=== PATIENT | male | born 1985 | race Caucasian/White ===

== ENCOUNTER 2017-03-13 19:41 | Emergency (ER) | payer BC, OTHER ==
[~2017-03-13] VITALS: Ht 177.8 cm; Wt 82.1 kg
[~2017-03-13 19:41] MED LIST: CIPRO500 MG PO; FLAGYL500 MG PO; HYOSCYAMINE0.125 M2 PO; NORCO 5-325 TA1 EACH PO; PAIN RELIEF325 MG PO
--- OUTSIDE RECORDS SUMMARY | 2017-03-13 20:49 | XMS ---
Demographics + + + | Address | [address] [place] [address] | | | [place] [address] | + + + | Preferred Language | Unknown | + + + | Marital Status | Unknown | + + + | Nondenominational Affiliation | Unknown | + + + | Race | Unknown | + + + | Ethnic Group | Unknown | + + + Author + + + | Author | [facility] | + + + | Organization | [facility] | + + + | Address | [address] | | | [place] [address] | + + + | Phone | | + + + Care Team Providers + + + + | Care Robotics Testing Technician Name | Role | Phone | + + + + Unavailable | Unavailable | + + + + PROBLEMS +---------+ + + +--------+ + + | Type | Condition | ICD9-CM | [id number] | Onset | Condition | SNOMED | | | | Code | Code | Dates | Status | Code | +---------+ + + +--------+ + + | Problem | Macrocytos | 289.89 | | | Active | [id number] | | | is without | | | | | | | | anemia | | | | | | +---------+ + + +--------+ + + | Problem | Allergic | 372.14 | | | Active | [id number] | | | conjunctiv | | | | | 11[address] | | | itis of | | | | | | | | both eyes | | | | | | +---------+ + + +--------+ + + | Problem | Depression | 296.32 | | | Active | [id number] | | | , major, | | | | | | | | recurrent, | | | | | | | | moderate | | | | | | +---------+ + + +--------+ + + ALLERGIES + + + + +--------+ | Substance | Reaction | Event Type | Date | Status | + + + + +--------+ | Septra | swelling | Drug Allergy | Jan, | Active | + + + + +--------+ | [place] | sick | Drug Allergy | Jan, | Active | + + + + +--------+ | codeine | swelling | Non Drug | Jan, | Active | | | | Allergy | | | + + + + +--------+ SOCIAL HISTORY No smoking Hx information available PLAN OF CARE + +---------+ | Activity | Details | + +---------+ +---+ | | +---+ + + + | Follow Up | 1 Week Reason:null | + + + VITAL SIGNS + + + + | Height | 70 in | 2017-01-17 | + + + + | Weight | 176.4 lbs | 2017-01-17 | + + + + | BMI | 25.31 kg/m2 | 2017-01-17 | + + + + | Temperature | 99.1 degrees Fahrenheit | 2017-01-17 | + + + + | Heart Rate | 66 /min | 2017-01-17 | + + + + | Blood pressure systolic | 136 mm Hg | 2017-01-17 | + + + + | Blood pressure diastolic | 87 mm Hg | 2017-01-17 | + + + + MEDICATIONS + + + + + + + +--------+ | Medicati | Instruct | Dosage | Frequenc | Start | End Date | Duration | Status | | on | ions | | y | Date | | | | + + + + + + + +--------+ | Cephalex | Orally | 1 | 12h | 13 Abner, | 23 Abner, | 10 | Active | | in 500 | every 12 | capsule | | 2017 | 2016 | day(s) | | | MG | hrs | | | | | | | + + + + + + + +--------+ | Vitamin | Orally | 1 tab(s) | 24h | | | | Active | | D-3 2000 | daily | | | | | | | + + + + + + + +--------+ | Acetamin | Orally | 2 tablet | 8h | | | | Active | | ophen | every 8 | as | | | | | | | 325 MG | hrs | needed | | | | | | + + + + + + + +--------+ | Diphenhy | Oral qhs | 1-2 tab | | | | | Active | | dramine | | | | | | | | | 25 mg | | | | | | | | + + + + + + + +--------+ | Ibuprofe | Orally | 1 tablet | 8h | | | | Active | | n 800 MG | every 8 | | | | | | | | | hours | | | | | | | + + + + + + + +--------+ RESULTS No Results PROCEDURES + + + + + | Procedure | Date Ordered | Related Diagnosis | Body Site | + + + + + | Est Level II | January 17, 2017 | | | | Limited | | | | + + + + + IMMUNIZATIONS No Known Immunizations"
== END 2017-03-13 22:46 | disposition left against medical advice (07) ==
LOC: ED 19:41
DX: Z53.21 Procedure and treatment not carried out due to patient leaving prior to being seen by health care provider (principal)

== ENCOUNTER 2017-06-21 18:40 | Emergency (ER) | payer BC, OTHER ==
[~2017-06-21] VITALS: Ht 177.8 cm; Wt 82.1 kg
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
--- OUTSIDE RECORDS SUMMARY | ~2017-06-21 | XMS ---
Demographics + + + | Address | [address] [place] [address] | | | [place] [address] | + + + | Preferred Language | Unknown | + + + | Marital Status | Unknown | + + + | Voodoo Affiliation | Unknown | + + + | Race | Unknown | + + + | Ethnic Group | Unknown | + + + Author + + + | Author | [facility] | + + + | Organization | [facility] | + + + | Address | [address] | | | [place] [address] | + + + | Phone | | + + + Care Team Providers + + + + | Care Hamper Maker Name | Role | Phone | + + + + Unavailable | Unavailable | + + + + PROBLEMS +---------+ + + +--------+ + + | Type | Condition | ICD9-CM | [id number] | Onset | Condition | SNOMED | | | | Code | Code | Dates | Status | Code | +---------+ + + +--------+ + + | Problem | Macrocytos | 289.89 | | | Active | [id number] | | | is without | | | | | | | | anemia | | | | | | +---------+ + + +--------+ + + | Problem | Allergic | 372.14 | | | Active | [id number] | | | conjunctiv | | | | | [address] | | | itis of | | | | | | | | both eyes | | | | | | +---------+ + + +--------+ + + | Problem | Depression | 296.32 | | | Active | [id number] | | | , major, | | [...] smoking Hx information available PLAN OF CARE VITAL SIGNS MEDICATIONS + + + + + + [...] + + + + + +--------+ | Clindamy | Orally | 1 | 6h | Mar, | Mar, | 10 | Active | | adrian HCl | every 6 | capsule | | 2016 | 2016 | day(s) | | | 300 MG | hrs | | | | | | | + + + + + + + +--------+ RESULTS No Results PROCEDURES No Known procedures IMMUNIZATIONS No Known Immunizations"
[2017-06-21] MEDS ORDERED: KEFLEX500 MG PO (20:15)
== END 2017-06-21 20:21 | disposition home or self-care (01) ==
LOC: ED 18:40
DX: L73.1 Pseudofolliculitis barbae (principal); F32.9 Major depressive disorder, single episode, unspecified; Z87.891 Personal history of nicotine dependence; Z88.2 Allergy status to sulfonamides; Z88.5 Allergy status to narcotic agent
CPT/HCPCS: 99283

== ENCOUNTER 2017-08-15 16:38 | Emergency (ER) | payer BC, OTHER ==
[~2017-08-15] VITALS: Ht 177.8 cm; Wt 84.8 kg
[~2017-08-15 16:38] MED LIST changes: +KEFLEX500 MG PO
[2017-08-15] MEDS ORDERED: NORCO 5-325 TA1 EACH PO (17:32)
[2017-08-15] MEDS ORDERED: CLEOCIN HCL300 MG PO (17:32)
[2018-01-24] MEDS ORDERED: TYLENOL325 MG PO (19:01)
[2018-01-24] MEDS ORDERED: ADVIL200 MG PO (19:02)
[2018-01-24] MEDS ORDERED: AMOXICILLIN500 MG PO (20:40)
[2018-01-24] MEDS ORDERED: TRAMADOL HCL50 MG PO (20:40)
== END 2017-08-15 17:52 | disposition home or self-care (01) ==
LOC: ED 16:38
DX: L02.31 Cutaneous abscess of buttock (principal); F32.9 Major depressive disorder, single episode, unspecified; F17.200 Nicotine dependence, unspecified, uncomplicated; Z88.2 Allergy status to sulfonamides; Z88.0 Allergy status to penicillin
CPT/HCPCS: 99283

== ENCOUNTER 2017-11-20 16:53 | Emergency (ER) | payer BC, OTHER ==
[~2017-11-20] VITALS: Ht 177.8 cm; Wt 84.8 kg
[~2017-11-20 16:53] MED LIST changes: +CLEOCIN HCL300 MG PO
[2018-01-24] MEDS ORDERED: TYLENOL325 MG PO (19:01)
[2018-01-24] MEDS ORDERED: ADVIL200 MG PO (19:02)
[2018-01-24] MEDS ORDERED: TRAMADOL HCL50 MG PO (20:40)
[2018-01-24] MEDS ORDERED: AMOXICILLIN500 MG PO (20:40)
== END 2017-11-20 17:15 | disposition home or self-care (01) ==
LOC: ED 16:53
DX: L98.9 Disorder of the skin and subcutaneous tissue, unspecified (principal)

== ENCOUNTER 2020-05-01 02:41 | Emergency (ER) | payer BC, OTHER ==
[~2020-05-01] VITALS: Ht 177.8 cm; Wt 104.1 kg
[~2020-05-01 02:41] MED LIST changes: +ADVIL200 MG PO; +AMOXICILLIN500 MG PO; +AUGMENTIN 500-1 EACH PO; +BENADRYL25 MG PO; +DOXYCYCLINE HY100 MG PO; +IBUPROFEN600 MG PO; +PERCOCET 7.5-31 EACH PO; +TRAMADOL HCL50 MG PO; +TYLENOL325 MG PO
--- OUTSIDE RECORDS SUMMARY | 2020-05-01 02:44 | XMS ---
PreManage Notification: SERGIO GASPAR Security Supervisor Drawing Events No recent Security Events currently on file CRITERIA MET - Group Notification - [facility] - Has Care Guidelines CARE PROVIDERS NADJA BENITES Nurse Practitioner: 11/06/2018-Current PHONE: [phone] Guidelines Source: [facility] [place] Guidelines Date: 12/10/2019 Care Coordination: Member is not currently enrolled in Mental Health Services through [facility] services. If services are needed through [facility] please call: Hola [phone] Migue/Carlos Lluvia\Emeli\[facility]; [phone] Crisis [phone] E.Darrel VISIT COUNT (12 MO.) [address] [place] [address] TOTAL 1 NOTE: Visits indicate total known visits. ED/UCC VISIT TRACKING (12 MO.) 05/01/2020 02:41 [facility] [place] TYPE: Emergency COMPLAINT: - LOWER BACK PAIN INPATIENT VISIT TRACKING (12 MO.) No inpatient visits to display in this time frame [email or web address]
[2020-05-01] MEDS ORDERED: NORCO 5-325 TA1 EACH PO (06:03)
== END 2020-05-01 06:21 | disposition home or self-care (01) ==
LOC: ED 02:41
DX: N13.2 Hydronephrosis with renal and ureteral calculous obstruction (principal); F32.9 Major depressive disorder, single episode, unspecified; F17.200 Nicotine dependence, unspecified, uncomplicated; Z88.2 Allergy status to sulfonamides; Z88.5 Allergy status to narcotic agent
CPT/HCPCS: 51798; 74176; 80053; 81001; 85025; 96361; 96374; 96375; 99284-25; J1170; J1885; J2405; J7030

== ENCOUNTER 2020-05-29 15:47 | Emergency (ER) | payer BC, OTHER ==
[~2020-05-29] VITALS: Ht 177.8 cm; Wt 103.9 kg
--- OUTSIDE RECORDS SUMMARY | 2020-05-29 15:48 | XMS ---
PreManage Notification: SERGIO GASPAR Security Press Machine Feeder Events No recent Security Events currently on file CRITERIA MET - Group Notification - [facility] - Has Care Guidelines - [facility] - 2 Visits in 30 Days CARE PROVIDERS NADJA BENITES Nurse Practitioner: 11/06/2018-Current PHONE: [phone] Guidelines Source: [facility] Guidelines Date: 12/10/2019 Care Coordination: Member is not currently enrolled in Mental Health Services through [facility] services. If services are needed through [facility] please call: Hola [phone] Migue/Carlos Hinton\[facility]; [phone] Crisis [phone] E.Darrel VISIT COUNT (12 MO.) 3 [facility] TOTAL 3 NOTE: Visits indicate total known visits. ED/UCC VISIT TRACKING (12 MO.) 05/29/2020 15:47 [facility] [place] TYPE: Emergency COMPLAINT: - COUGH, SORE THROAT 05/29/2020 00:00 [facility] [place] TYPE: Emergency COMPLAINT: - COUGH, SORE THROAT 05/01/2020 02:41 [facility] [place] TYPE: Emergency COMPLAINT: - LOWER BACK PAIN DIAGNOSES: - Hydronephrosis with renal and ureteral calculous obstruction - Allergy status to narcotic agent status - Major depressive disorder, single episode, unspecified - Nicotine dependence, unspecified, uncomplicated - Unspecified abdominal pain - Allergy status to sulfonamides status INPATIENT VISIT TRACKING (12 MO.) No inpatient visits to display in this time frame [email or web address]
== END 2020-05-29 17:08 | disposition home or self-care (01) ==
LOC: ED 15:47
DX: J20.9 Acute bronchitis, unspecified (principal); F17.200 Nicotine dependence, unspecified, uncomplicated; Z88.2 Allergy status to sulfonamides; Z88.5 Allergy status to narcotic agent
CPT/HCPCS: 99283